=== PATIENT | female | born 1990 | race Caucasian/White ===

== ENCOUNTER → 2016-10-24 | Outpatient (CLI) | payer BC ==
--- NOTE | 2016-10-24 16:30 | Diagnostic Imaging Report ---
INDICATION: anatomical assessment. TECHNIQUE: Multiple real-time grayscale images were obtained over the gravid uterus. COMPARISON: None FINDINGS: Single viable intrauterine currently in transverse position. Placenta is posterior without evidence for previa. Normal amount of amniotic fluid appears to be present. anatomical assessment demonstrates very limited essentially no visualization of the portions of the intracranial structures, cardiac structures as well as kidneys. The remainder of the visualized anatomical structures are unremarkable. Biometrical measurements are as follows: Biparietal 4.8 cm, age 20 weeks 6 days. Head circumference 18.4 cm, age 20 weeks 6 days. Abdominal circumference 15.4 cm, age 20 weeks 5 days. Femur length 3.7 cm, age 21 weeks 5 days. Sonographic estimate age: 21 weeks 1 days. Sonographic estimated date of delivery: 03/05/2017. Estimated Weight: 397 gm (+/- 58 gm). LMP percentile: 49%. heart rate: 158 beats per minute. number: 1 of 1. IMPRESSION: Single viable intrauterine in a transverse position. Estimated age is 21 weeks 1 day. Estimated date of delivery 03/05/2017. The intracranial structures, heart and kidneys are not well assessed at this time. Dictated by: Dictated on workstation # [id number]
== END ==
LOC: RAD 13:38
PROVIDERS: ATTEND Obstetrics & Gynecology
DX: Z36 Encounter for antenatal screening of mother (principal); Z3A.21 21 weeks gestation of pregnancy
CPT/HCPCS: 76805

== ENCOUNTER 2017-03-03 11:35 | Inpatient (IN) | payer BC ==
[2017-03-03] VITALS (43 sets, daily range): BP systolic 118–158; BP diastolic 58–96
[~2017-03-03] VITALS: Ht 157.5 cm; Wt 112.7 kg
[2017-03-03] MEDS ORDERED: MISOPROSTOL 100 MCG (CYTOTEC) TAB PO ONE (12:30)
[2017-03-03] MEDS ORDERED: CATHETER FLUSH 10 ML SYR IV PRN (12:30)
[2017-03-03 12:35] LABS: BASOPHILS % (AUTO) 0 % (0-10); EOSINOPHILS # (AUTO) 0.1 10^3/uL (0.0-0.3); EOSINOPHILS % (AUTO) 1 % (0-10); LYMPHOCYTES # (AUTO) 1.9 X 10^3 (1.0-4.0); LYMPHOCYTES % (AUTO) 21 % (12-44); MEAN CORPUSCULAR HEMOGLOBIN 28 PG (25-34); MEAN CORPUSCULAR HGB CONC 34 G/DL (32-36); MEAN CORPUSCULAR VOLUME 83 FL (80-99); MEAN PLATELET VOLUME 10.1 FL (7.4-10.4); MONOCYTES # (AUTO) 0.7 X 10^3 (0.0-1.0); MONOCYTES % (AUTO) 8 % (0-12); NEUTROPHILS # (AUTO) 6.3 X 10^3 (1.8-7.8); NEUTROPHILS % (AUTO) 70 % (42-75); PLATELET COUNT 288 10^3/uL (130-400); RED BLOOD COUNT 4.46 10^6/uL (4.35-5.85); RED CELL DISTRIBUTION WIDTH 13.9 % (10.0-14.5); WHITE BLOOD COUNT 9.1 10^3/uL (4.3-11.0)
[2017-03-03] MEDS: NS IV 1000 ML 1,000 ML IV SCH ×2 (12:39→16:55)
[2017-03-03] MEDS ORDERED: LEVO50TA6 PO (13:03)
[2017-03-03] MEDS ORDERED: PREN1TAB86 PO (13:03)
[2017-03-03] MEDS: ONDANSETRON 4 MG/2 ML (SDV) Z0FRAN IVP PRN ×2 (14:32→20:08)
[2017-03-03] MEDS ORDERED: OXYTOCIN/NORMAL SALINE 500 ML IV ONE (16:22)
[2017-03-03] MEDS ORDERED: OXYTOCIN/NORMAL SALINE 500 ML IV SCH (16:34)
[2017-03-03] MEDS ORDERED: SUFENTA 0.6MCG/ML BUPIVA 0.125 100 ML ONE (20:06)
[2017-03-03] MEDS ORDERED: KETAMINE HCL 100 MG/ML 5 ML VIAL ONE (20:44)
[2017-03-03] MEDS ORDERED: fentaNYL INJECTION 100 MCG/2 ML AMP ONE ×3 (20:44)
[2017-03-03] MEDS: EPIDURAL (SUFENTA 0.6MCG/ML BUPIVA 0.125%) 100 ML BAG EPI PRN (20:53)
[2017-03-03] MEDS ORDERED: LACTATED RINGERS 1,000 ML IV ONE (21:03)
--- NOTE | 2017-03-03 21:05 | Anesthesia-General Post-Op ---
General Patient Condition Mental Status/LOC: Same as Preop Cardiovascular: Satisfactory Nausea/Vomiting: Absent Respiratory: Satisfactory Pain: Controlled Complications: Absent Post Op Complications Complications None Follow Up Care/Instructions Patient Instructions None needed. Anesthesia/Patient Condition Patient Condition Patient is doing well, no complaints, stable vital signs, no apparent adverse anesthesia problems. No complications reported per nursing. MILDRED AGUILAR CRNA Mar 03, 2017 21:05
[2017-03-03] MEDS ORDERED: diphenhydrAMINE 50 MG/ML INJ (BENADRYL) IV PRN (21:15)
[2017-03-03] MEDS ORDERED: ONDANSETRON 4 MG/2 ML (SDV) Z0FRAN IV PRN (21:15)
[2017-03-03] MEDS ORDERED: NALOXONE 0.4 MG/ML 1 ML (NARCAN) VIAL IV PRN ×2 (21:15)
[2017-03-04] VITALS (81 sets, daily range): BP systolic 102–150; BP diastolic 51–98
[2017-03-04] MEDS: NS IV 1000 ML 1,000 ML IV SCH ×2 (01:08→08:44)
[2017-03-04] MEDS: EPIDURAL (SUFENTA 0.6MCG/ML BUPIVA 0.125%) 100 ML BAG EPI PRN ×3 (04:09→19:40)
[2017-03-04] MEDS: ONDANSETRON 4 MG/2 ML (SDV) Z0FRAN IVP PRN (08:41)
[2017-03-04] MEDS: METOCLOPRAMIDE INJ 10 MG/2 ML (REGLAN) IV PRN ×2 (12:30→20:04)
--- NOTE | 2017-03-04 16:18 | History & Physical-OB ---
OB - Chief Complaint & HPI Date/Time Date of Admission: Date of Admission: Mar 03, 2017 at 12:23 pm Time Seen by Provider: 09:45 Chief Complaint/History OB-Reason for Admission/Chief: Rupture of Membranes Hx : 1 Hx Para: 0 Expected Date of Delivery: Mar 06, 2017 Gestational Age in Weeks: 39 Gestational Age in Days: 4 Other reason for admission: This is a 26 year old at 38 4/7 weeks who was admitted on 03/03/[address] Quiñones with complaint of ROM. She reports ROM at 10:00 on 03/03/2017. I resumed care of the patient on 03/04/2107. On admission she had gross rupture of membranes and was reportedly 2 cm dilated. She apparently declined pitocin initially so misoprostol 50 mcg orally was given x 1 and then augmentation with pitocin, though this was increased slowly and not past 18 mu/hr despite inadequate contraction pattern. She was still 4 cm dilated when I resumed care this morning. Admission Nurse Assessment Rev: Yes History of Labs O+/- Rub I VDRL NR HbSAg - Hep C - HIV - subclinical hypothyroid with TSH of 5 on intake. Has been on 50 mcg of syntoroid. GC Ch - GBS - abnormal 1 hour, passed 3 hour Allergies and Home Medications Allergies Coded Allergies: latex (Verified Allergy, Unknown, RASH, 03/03/17) Home Medications Levothyroxine Sodium 50 Mcg Tablet, 50 MCG PO DAILY, (Reported) Vit W-Ca,Fe,FA(<1 mg) 1 Each Tablet, 1 EACH PO DAILY, (Reported) OB - History Hx of Present Ultrasounds: Normal mid trimester US Obstetrical Complications: None Medical Complications: None, Other (Had workup for alopecia at [facility] and then [facility]. Apparently was told she might had Hep C, but did not have those results. We have not been able to reproduce this. Viral load was negative and she has had a negative antibody panel. ) Obstetrical History Hx : 1 Hx Para: 0 Delivery History Adverse Rxn to Tranfusion: No Patient Past Medical History See above Social History/Family History HIV/AIDS: No Recent Infectious Disease Expo: No Sexually Transmitted Disease: No Alcohol Use: Regular Use (none since + test ) Recreational Drug Use: No Immunizations Date of Influenza Vaccine: Feb 08, 2017 OB - Admission Exam Physical Exam Vitals: Vital Signs 03/04/17 03/04/17 14:30 15:30 Temp 98.2 Pulse 98 Resp 20 B/P (MAP) 130/70 Pulse Ox 98 O2 Delivery Room Air JENNY MONTANO DO Mar 04, 2017 16:18
[2017-03-04] MEDS ORDERED: CITRIC ACID/SOB CIT (BICITRA) 30 ML UDC ONE (17:02)
[2017-03-04] MEDS ORDERED: LACTATED RINGERS 1,000 ML IV ONE (17:02)
[2017-03-04] MEDS ORDERED: FAMOTIDINE 20MG/2ML IV (PEPCID) ONE (17:02)
[2017-03-04] MEDS ORDERED: ceFAZolin 1,000 MG (ANCEF) VIAL ONE (19:57)
[2017-03-04] MEDS ORDERED: NS (IVPB) 0 ML ONE (19:57)
[2017-03-04] MEDS ORDERED: ceFAZolin 2 GM/50 ML NS 50 ML ONE (19:59)
[2017-03-04] MEDS ORDERED: AZITHROMYCIN 500 MG (ZITHROMAX) VIAL ONE (20:02)
[2017-03-04] MEDS ORDERED: OXYTOCIN/NORMAL SALINE 1,000 ML IV ONE (20:13)
[2017-03-04] MEDS ORDERED: LIDOCAINE PF 2% 5 ML (XYLOCAINE) VIAL ONE (20:13)
[2017-03-04] MEDS ORDERED: CITRIC ACID/SOB CIT (BICITRA) 30 ML UDC PO ONE ×2 (20:15→22:15)
[2017-03-04] MEDS ORDERED: METOCLOPRAMIDE INJ 10 MG/2 ML (REGLAN) IV ONE ×2 (20:15→22:15)
[2017-03-04] MEDS ORDERED: AZITHROMYCIN INJECTION 500 MG in NS (IVPB) 250 ML IV NR (20:15)
[2017-03-04] MEDS ORDERED: FAMOTIDINE 20MG/2ML IV (PEPCID) IV ONE ×2 (20:15→22:15)
[2017-03-04] MEDS ORDERED: ceFAZolin 2 GM/50 ML NS 50 ML IV NR (20:15)
[2017-03-04] MEDS ORDERED: AZITHROMYCIN INJECTION 500 MG in NS (IVPB) 250 ML IV ONE (20:15)
[2017-03-04] MEDS ORDERED: ceFAZolin 2 GM/50 ML NS 50 ML IV ONE (20:15)
[2017-03-04] MEDS ORDERED: NS (IVPB) 250 ML ONE (20:17)
--- NOTE | 2017-03-04 20:19 | Progress Note-Standard ---
Standard Progress Note Progress Notes/Assess & Plan Date Seen by Provider: Mar 04, 2017 Time Seen by Provider: 09:45 Progress/Assessment & Plan Resumed care from Dr. Quiñoens. See History and physical Admitted yesterday due to ROM. Had misoprostol x 1 and then augmentation with oxytocin. Had reached 4 cm dilation only this am wit marcano modified oxytocin dosing. She had epidural placement. RN reports difficulty tracing the baby but Dr. Quiñones would not authorize the placement of FSE due to questions about Hep C status (patient is negative but had told us that she was positive when she was tested at some point, but further testing has been negative). This am FSE will be placed and oxytocin augmentation was increased. She has now had ROM since 10:00 am on 03/03/17. No fever, no tachycardia, no evidence of infection. FWB is reassuring. Had a window on her side from the epidural but this is better with the bolus. JENNY MONTANO DO Mar 04, 2017 20:19
--- NOTE | 2017-03-04 20:25 | Progress Note-Standard ---
Standard Progress Note Progress Notes/Assess & Plan Date Seen by Provider: Mar 04, 2017 Time Seen by Provider: 12:30 Progress/Assessment & Plan contraction pattern difficulty to trac. IUPC placed without difficulty. 7 cm/ 90-100. JENNY MONTANO DO Mar 04, 2017 20:25
--- NOTE | 2017-03-04 20:29 | Progress Note-Standard ---
Standard Progress Note Progress Notes/Assess & Plan Date Seen by Provider: Mar 04, 2017 Time Seen by Provider: 19:55 Progress/Assessment & Plan SVE at 1745 9 +. Despite adequate contractions (> 200 MVU with IUPC), SVE at 1940, 8-9/ 80-90% dilated, suggestion of cervical swelling. well being reassuring but baseline slowly increasing. Plan to proceed with primary section under epidural anesthesia due to failure to progress. Prolonged ROM. Risks of bleeding, infection, injury to bowel, bladder and ureter. Ancef 2 grams and Zithromax 500 mg given IV for prophylaxis and due to ROM. Consent signed. JENNY MONTANO DO Mar 04, 2017 20:29
[2017-03-04] MEDS ORDERED: ONDANSETRON 4 MG/2 ML (SDV) Z0FRAN ONE (21:07)
[2017-03-04] MEDS ORDERED: DEXAMETHASONE 10 MG/ML (DECADRON) 1 ML VIAL ONE (21:07)
[2017-03-04] MEDS ORDERED: D5 LR IV SOLUTION 1,000 ML IV SCH (21:48)
[2017-03-04] MEDS ORDERED: OXYTOCIN/NORMAL SALINE 500 ML IV SCH (21:48)
--- NOTE | 2017-03-04 21:54 | Cesarean Section Operative ---
Procedure Procedure Note Pre-operative Diagnosis: Coby yip (28 /Para 1 / 0, Gestational Age (wks)39 with faliure to progress, prolonged rupture of membranes Post-operative Diagnosis: same [] Procedure: [primary low transverse section Physician: MERLY MONTANO Financial Project Manager: JAMES Cervantes; Merly Ross, MS III Estimated blood loss: 600 mL Disposition: stable Findings: Viablefemale infant, Apgars 8/8, weight 6#10oz, intact placenta, 3vc, normal appearing uterus, tubes, and ovaries. Indications:Coby yip (26 /Para 1 / 0,Gestational Age (wks)39 presenting for []. Procedure Details: The patient was seen in pre-op and the procedure was discussed with the patient in full, including the risks, benefits, and alternatives. All questions were answered. The patient was taken to the operating room and a time out was performed, verifying patient and procedure. After spinal anesthesia was placed by our anesthesia colleagues, the patient was placed in the dorsal supine with leftward tilt for uterine displacement.~ Her abdomen was then prepped and draped in the typical sterile fashion. A Pfannenstiel skin incision was made using a scalpel and carried down through the underlying fascia. The fascia was incised in the midline and tented up using Gracie clamps. On both the inferior and superior fascia side the rectus muscle was dissected off bluntly and sharply using Louis scissors. The peritoneum was identified and entered bluntly in the midline. This was then stretched laterally using manual strength. After entering the abdominal cavity and confirming lack of intraperitoneal adhesions, a large Moose retractor was placed and the lower uterine segment was visualized. A bladder flap was created with the use of Metzenbaum scissors.~ A scalpel was utilized to make a low transverse uterine incision. Amniotomy was performed with an Allis clamp with return of clear fluid. The 's head was grasped and brought to the level of the incision. Fundal pressure was applied and infant was delivered without difficulty. Mouth and nares were suctioned with bulb suction. After the umbilical cord was clamped and cut, the infant was handed off to the pediatric staff. A sample of cord blood was then obtained. The placenta was delivered intact via uterine massage. The uterus was exteriorized and cleared of all clots and debris. The uterine incision was closed using 0 Vicryl in a running locked fashion. A second imbricated layer was placed using 0 Vicryl in a running fashion as well. The uterus was flexed forward and the posterior rectouterine space was inspected and cleared of all clots and debris. Again the hysterotomy site was examined and hemostasis was observed. The bilateral tubes and ovaries appeared normal. The uterus was placed back into the abdominal cavity and abdominal gutters were cleared of all clots and debris. A final check of the uterine incision showed it to be hemostatic. The peritoneum was closed using 3-0 Vicryl in a running fashion. The fascia was closed with 0 Vicryl in a running fashion. The subcutaneous space was hemostatic, and irrigated. The subcutaneous space was closed with 3-0 Vicryl in several single interrupted stitches. The skin was then closed using 4- 0 Monocryl in a running subcuticular fashion. The skin edges were reapproximated together and were hemostatic. A pressure dressing was applied. All sponge, lap and needle counts were correct at the end of the procedure per nursing. Vitals - Labs Vital Signs - I&O Vital Signs Date Time Temp Pulse Resp B/P (MAP) Pulse Ox O2 Delivery O2 Flow Rate FiO2 03/04/17 19:00 114 20 143/84 99 Room Air 03/04/17 18:45 97.8 108 20 144/77 100 Room Air 03/04/17 18:30 102 20 129/64 100 Room Air 03/04/17 18:15 103 20 138/73 99 Room Air 03/04/17 18:00 98.1 101 20 141/75 100 Room Air 03/04/17 17:45 110 20 138/78 99 Room Air 03/04/17 17:30 102 20 135/75 99 Room Air 03/04/17 17:15 97.9 101 20 150/62 99 Room Air 03/04/17 17:00 100 20 102/62 99 Room Air 03/04/17 16:45 101 20 135/75 98 Room Air 03/04/17 16:30 105 20 123/57 98 Room Air 03/04/17 16:15 100 20 131/64 99 Room Air 03/04/17 16:00 97.7 104 20 98 Room Air 03/04/17 15:45 93 20 127/64 97 Room Air 03/04/17 15:30 98 20 130/70 98 Room Air 03/04/17 15:15 104 20 130/64 99 Room Air 03/04/17 15:00 106 20 128/61 98 Room Air 03/04/17 14:45 104 20 119/66 98 Room Air 03/04/17 14:30 98.2 109 20 108/51 98 Room Air 03/04/17 14:15 98.1 117 20 134/80 98 Room Air 03/04/17 14:00 97.6 125 20 131/80 98 Room Air 03/04/17 13:45 126 20 116/65 98 Room Air 03/04/17 13:30 126 20 116/65 98 Room Air 03/04/17 13:15 99 20 122/61 97 Room Air 03/04/17 13:00 96 20 116/58 96 Room Air 03/04/17 12:45 101 20 116/62 96 Room Air 03/04/17 12:30 98.8 120 20 134/79 98 Room Air 03/04/17 12:15 110 20 127/66 97 Room Air 03/04/17 12:00 102 20 128/68 96 Room Air 03/04/17 11:45 104 20 130/67 98 Room Air 03/04/17 11:30 96 20 130/62 97 Room Air 03/04/17 11:15 97.1 122 20 136/73 98 Room Air 03/04/17 11:00 110 20 138/78 96 Room Air 03/04/17 10:45 97.2 107 20 149/87 99 Room Air 03/04/17 10:30 123 20 135/78 99 Room Air 03/04/17 10:15 121 20 135/85 99 Room Air 03/04/17 10:00 112 20 137/88 99 Room Air 03/04/17 09:45 97.6 115 20 134/84 98 Room Air 03/04/17 09:30 110 20 141/85 100 Room Air 03/04/17 09:15 118 20 141/89 100 Room Air 03/04/17 09:00 118 20 140/80 99 Room Air 03/04/17 08:45 98.7 118 20 144/98 99 Room Air 03/04/17 08:30 108 20 127/73 98 Room Air 03/04/17 08:15 105 20 122/72 97 Room Air 03/04/17 08:00 108 20 119/71 97 Room Air 03/04/17 07:45 108 20 123/73 98 Room Air 03/04/17 07:30 97.8 112 20 126/73 97 Room Air 03/04/17 07:15 108 20 133/79 97 Room Air 03/04/17 07:00 18 20 132/79 98 Room Air 03/04/17 06:45 115 20 125/74 98 Room Air 03/04/17 06:30 107 20 132/83 98 Room Air 03/04/17 06:15 104 20 134/83 98 Room Air 03/04/17 06:00 103 20 135/67 98 Room Air 03/04/17 05:45 97.6 118 20 97 Room Air 03/04/17 05:30 118 20 122/78 97 Room Air 03/04/17 05:15 109 20 127/73 97 Room Air 03/04/17 05:00 107 20 124/72 97 Room Air 03/04/17 04:45 97 20 139/81 97 Room Air 03/04/17 04:30 112 20 125/77 97 Room Air 03/04/17 04:15 117 20 122/76 97 Room Air 03/04/17 04:00 107 20 124/71 97 Room Air 03/04/17 03:45 107 20 136/78 97 Room Air 03/04/17 03:30 107 20 136/78 97 Room Air 03/04/17 03:15 99.0 102 20 139/80 97 Room Air 03/04/17 03:00 103 20 136/82 97 Room Air 03/04/17 02:45 109 20 137/75 98 Room Air 03/04/17 02:30 97 20 127/67 97 Room Air 03/04/17 02:15 96 20 120/66 97 Room Air 03/04/17 02:00 96 20 127/62 98 Room Air 03/04/17 01:45 101 20 130/71 98 Room Air 03/04/17 01:30 100 20 126/75 98 Room Air 03/04/17 01:15 110 20 133/83 98 Room Air 03/04/17 01:00 104 20 125/75 98 Room Air 03/04/17 00:45 112 20 126/77 98 Room Air 03/04/17 00:30 107 20 125/84 98 Room Air 03/04/17 00:15 108 20 121/96 98 Room Air 03/04/17 00:00 100 20 138/79 98 Room Air 03/03/17 23:45 103 20 138/82 100 Room Air 03/03/17 23:30 104 20 135/84 100 Room Air 03/03/17 23:15 98.5 108 20 135/83 100 Room Air 03/03/17 23:00 113 20 154/90 100 Room Air 03/03/17 22:45 109 20 143/90 100 Room Air 03/03/17 22:30 105 20 134/80 99 Room Air 03/03/17 22:15 121 20 131/82 99 Room Air 03/03/17 22:00 129 20 133/75 100 Room Air I & O 03/05/17 07:00 Output Total 4600 ml Balance -4600 ml MERLY MONTANO DO Mar 04, 2017 21:54
[2017-03-04] MEDS ORDERED: CATHETER FLUSH 10 ML SYR IV SCH (22:00)
[2017-03-04] MEDS ORDERED: MEASLES,MUMPS,RUBELLA 1 EA INJ SC SCH (22:00)
[2017-03-04] MEDS ORDERED: HYDROmorphone (DILAUDID) 2 MG/ML VIAL IVP PRN (22:00)
[2017-03-04] MEDS ORDERED: TETANUS,DIPTH,PERTUSS P/F (BOOSTRIX) 0.5 ML VIAL IM SCH (22:00)
[2017-03-04] MEDS ORDERED: LACTATED RINGERS 1,000 ML IV SCH ×3 (22:13)
[2017-03-04] MEDS ORDERED: METOCLOPRAMIDE INJ 10 MG/2 ML (REGLAN) IV PRN (22:15)
[2017-03-04] MEDS ORDERED: diphenhydrAMINE 50 MG/ML INJ (BENADRYL) IV PRN (22:15)
[2017-03-04] MEDS ORDERED: ONDANSETRON 4 MG/2 ML (SDV) Z0FRAN IV PRN (22:15)
[2017-03-04] MEDS ORDERED: NALOXONE 0.4 MG/ML 1 ML (NARCAN) VIAL IV PRN ×2 (22:15)
[2017-03-04] MEDS ORDERED: EPIDURAL (SUFENTA 0.6MCG/ML BUPIVA 0.125%) 100 ML BAG EPI PRN (22:15)
[2017-03-05] VITALS (7 sets, daily range): BP systolic 104–126; BP diastolic 64–76
[2017-03-05] MEDS: KETOROLAC 30 MG/ML VIAL IVP SCH ×2 (00:01→05:33)
[2017-03-05] MEDS: HYDROcodone/APAP 5 MG/325 MG (LORTAB) TAB PO PRN ×2 (02:38→08:06)
[2017-03-05 04:41] LABS: BASOPHILS % (AUTO) 0 % (0-10); EOSINOPHILS % (AUTO) 0 % (0-10); LYMPHOCYTES # (AUTO) 1.2 X 10^3 (1.0-4.0); LYMPHOCYTES % (AUTO) 5 % (12-44); MEAN CORPUSCULAR HEMOGLOBIN 29 PG (25-34); MEAN CORPUSCULAR HGB CONC 35 G/DL (32-36); MEAN CORPUSCULAR VOLUME 83 FL (80-99); MEAN PLATELET VOLUME 9.9 FL (7.4-10.4); MONOCYTES # (AUTO) 1.2 X 10^3 (0.0-1.0); MONOCYTES % (AUTO) 5 % (0-12); NEUTROPHILS # (AUTO) 23.5 X 10^3 (1.8-7.8); NEUTROPHILS % (AUTO) 91 % (42-75); PLATELET COUNT 250 10^3/uL (130-400); RED BLOOD COUNT 3.94 10^6/uL (4.35-5.85); RED CELL DISTRIBUTION WIDTH 13.6 % (10.0-14.5); WHITE BLOOD COUNT 25.8 10^3/uL (4.3-11.0)
[2017-03-05] MEDS: NS IV 1000 ML 1,000 ML IV SCH (05:33)
[2017-03-05] MEDS: FERROUS SULF 325 MG (IRON) TAB PO SCH (09:46)
[2017-03-05] MEDS: DOCUSATE SODIUM 100 MG (COLACE) CAP PO SCH (09:46)
--- NOTE | 2017-03-05 10:07 | Postpartum Progress Note ---
Post Op Post-operative Day #[] Subjective: Patient is without complaints. Ambulating, voiding after oliver removed. Tolerating a regular diet without nausea or vomiting. Normal lochia. Pain is well controlled with oral pain medications. Passing flatus. [] feeding. [] Objective: Laboratory Tests Test 03/05/17 04:30 Range/Units White Blood Count 25.8 H 4.3-11.0 10^3/uL Red Blood Count 3.94 L 4.35-5.85 10^6/uL Hemoglobin 11.3 L 11.5-16.0 G/DL Hematocrit 33 L 35-52 % Mean Corpuscular Volume 83 80-99 FL Mean Corpuscular Hemoglobin 29 25-34 PG Mean Corpuscular Hemoglobin Concent 35 32-36 G/DL Red Cell Distribution Width 13.6 10.0-14.5 % Platelet Count 250 130-400 10^3/uL Mean Platelet Volume 9.9 7.4-10.4 FL Neutrophils (%) (Auto) 91 H 42-75 % Lymphocytes (%) (Auto) 5 L 12-44 % Monocytes (%) (Auto) 5 0-12 % Eosinophils (%) (Auto) 0 0-10 % Basophils (%) (Auto) 0 0-10 % Neutrophils # (Auto) 23.5 H 1.8-7.8 X 10^3 Lymphocytes # (Auto) 1.2 1.0-4.0 X 10^3 Monocytes # (Auto) 1.2 H 0.0-1.0 X 10^3 Eosinophils # (Auto) 0.0 0.0-0.3 10^3/uL Basophils # (Auto) 0.0 0.0-0.1 10^3/uL Vital Sign - Last 12Hours 03/05/17 03/05/17 03/05/17 03/05/17 00:08 02:30 05:30 09:43 Temp 97.0 96.9 96.9 97.3 Pulse 104 97 98 105 Resp 18 18 18 20 B/P (MAP) 117/76 126/70 109/66 109/68 Pulse Ox 97 98 98 97 O2 Delivery Room Air Room Air Room Air Room Air Physical Exam: General - Alert and oriented, no apparent distress Abdomen - Soft, appropriately tender to palpation, non-distended, fundus firm at umbilicus Incision - clean, dry and intact; no erythema or induration, no drainage Extremities - no edema, negative Shannan's bilaterally [] Assessment: [] post-operative day # [], status post []. Recovering well, hemodynamically stable Acute blood loss anemia [] Plan: Routine post-operative care. Encourage breast feeding. Encourage ambulation. VTE prophylaxis: SCDs. Ferrous sulfate supplementation. Plan for discharge [] Vitals - Labs Vital Signs - I&O Vital Signs Date Time Temp Pulse Resp B/P (MAP) Pulse Ox O2 Delivery O2 Flow Rate FiO2 03/05/17 09:43 97.3 105 20 109/68 97 Room Air 03/05/17 05:30 96.9 98 18 109/66 98 Room Air 03/05/17 02:30 96.9 97 18 126/70 98 Room Air 03/05/17 00:08 97.0 104 18 117/76 97 Room Air 03/04/17 20:30 118 20 146/92 99 Room Air 03/04/17 20:15 129 20 142/91 99 Room Air 03/04/17 20:00 131 20 141/89 99 Room Air 03/04/17 19:45 120 20 136/84 99 Room Air 03/04/17 19:30 118 20 150/84 100 Room Air 03/04/17 19:15 97.9 120 20 143/83 99 Room Air 03/04/17 19:00 114 20 143/84 99 Room Air 03/04/17 18:45 97.8 108 20 144/77 100 Room Air 03/04/17 18:30 102 20 129/64 100 Room Air 03/04/17 18:15 103 20 138/73 99 Room Air 03/04/17 18:00 98.1 101 20 141/75 100 Room Air 03/04/17 17:45 110 20 138/78 99 Room Air 03/04/17 17:30 102 20 135/75 99 Room Air 03/04/17 17:15 97.9 101 20 150/62 99 Room Air 03/04/17 17:00 100 20 102/62 99 Room Air 03/04/17 16:45 101 20 135/75 98 Room Air 03/04/17 16:30 105 20 123/57 98 Room Air 03/04/17 16:15 100 20 131/64 99 Room Air 03/04/17 16:00 97.7 104 20 98 Room Air 03/04/17 15:45 93 20 127/64 97 Room Air 03/04/17 15:30 98 20 130/70 98 Room Air 03/04/17 15:15 104 20 130/64 99 Room Air 03/04/17 15:00 106 20 128/61 98 Room Air 03/04/17 14:45 104 20 119/66 98 Room Air 03/04/17 14:30 98.2 109 20 108/51 98 Room Air 03/04/17 14:15 98.1 117 20 134/80 98 Room Air 03/04/17 14:00 97.6 125 20 131/80 98 Room Air 03/04/17 13:45 126 20 116/65 98 Room Air 03/04/17 13:30 126 20 116/65 98 Room Air 03/04/17 13:15 99 20 122/61 97 Room Air 03/04/17 13:00 96 20 116/58 96 Room Air 03/04/17 12:45 101 20 116/62 96 Room Air 03/04/17 12:30 98.8 120 20 134/79 98 Room Air 03/04/17 12:15 110 20 127/66 97 Room Air 03/04/17 12:00 102 20 128/68 96 Room Air 03/04/17 11:45 104 20 130/67 98 Room Air 03/04/17 11:30 96 20 130/62 97 Room Air 03/04/17 11:15 97.1 122 20 136/73 98 Room Air 03/04/17 11:00 110 20 138/78 96 Room Air 03/04/17 10:45 97.2 107 20 149/87 99 Room Air 03/04/17 10:30 123 20 135/78 99 Room Air 03/04/17 10:15 121 20 135/85 99 Room Air Labs Laboratory Tests 03/05/17 04:30: White Blood Count 25.8H, Red Blood Count 3.94L, Hemoglobin 11.3L, Hematocrit 33L , Mean Corpuscular Volume 83, Mean Corpuscular Hemoglobin 29, Mean Corpuscular Hemoglobin Concent 35, Red Cell Distribution Width 13.6, Platelet Count 250, Mean Platelet Volume 9.9, Neutrophils (%) (Auto) 91H, Lymphocytes (%) (Auto) 5L , Monocytes (%) (Auto) 5, Eosinophils (%) (Auto) 0, Basophils (%) (Auto) 0, Neutrophils # (Auto) 23.5H, Lymphocytes # (Auto) 1.2, Monocytes # (Auto) 1.2H, Eosinophils # (Auto) 0.0, Basophils # (Auto) 0.0 JENNY MONTANO DO Mar 05, 2017 10:07
[2017-03-05] MEDS: IBUPROFEN 600 MG (MOTRIN) TAB PO SCH ×2 (12:05→18:24)
[2017-03-05] MEDS: SIMETHICONE 80 MG (MYLICON) CHEW PO SCH (14:43)
--- NOTE | 2017-03-05 15:49 | Anesthesia-Regional Post-Op ---
Regional Patient Condition Mental Status: Alert, Oriented x3 Circulation: Same as Pre-Op Headache: Absent Sensation: Decreased (left upper leg) Motor Block: Absent Post Op Complications Complications Patient states that her left upper thigh is slightly numb. Follow Up Care/Instructions Patient Instructions Follow up tomorrow. Anesthesia/Patient Condition Patient is doing well, no complaints, stable vital signs, no apparent adverse anesthesia problems. No complications reported per nursing. ZULMA BARRAZA CRNA Mar 05, 2017 15:49
[2017-03-06] MEDS: IBUPROFEN 600 MG (MOTRIN) TAB PO SCH ×4 (00:02→17:26)
[2017-03-06] MEDS: SIMETHICONE 80 MG (MYLICON) CHEW PO SCH ×4 (00:05→17:26)
[2017-03-06] MEDS: DOCUSATE SODIUM 100 MG (COLACE) CAP PO SCH ×3 (00:05→20:33)
[2017-03-06 02:23] VITALS: BP 122/74
[2017-03-06] MEDS: KETOROLAC 30 MG/ML VIAL IVP SCH (07:19)
[2017-03-06 08:24] VITALS: BP 135/82
[2017-03-06] MEDS: FERROUS SULF 325 MG (IRON) TAB PO SCH (09:02)
[2017-03-06 12:56] VITALS: BP 114/70
--- NOTE | 2017-03-06 14:11 | Anesthesia-Regional Post-Op ---
Regional Patient Condition Mental Status: Alert, Oriented x3 Circulation: Same as Pre-Op Headache: Absent Sensation: Decreased Motor Block: Absent Post Op Complications Complications Continues to report left upper thigh numbness. No motor deficit. Follow Up Care/Instructions Patient Instructions None needed. Anesthesia/Patient Condition Patient is doing well, no complaints, stable vital signs, no apparent adverse anesthesia problems. No complications reported per nursing. MANISH REYES CRNA Mar 06, 2017 14:11
[2017-03-06 16:13] VITALS: BP 141/91
[2017-03-06 20:00] VITALS: BP 150/90
[2017-03-07] MEDS: IBUPROFEN 600 MG (MOTRIN) TAB PO SCH ×3 (00:31→12:59)
[2017-03-07 02:00] VITALS: BP 143/90
[2017-03-07 07:53] VITALS: BP 134/82
[2017-03-07] MEDS: FERROUS SULF 325 MG (IRON) TAB PO SCH (08:30)
[2017-03-07] MEDS: DOCUSATE SODIUM 100 MG (COLACE) CAP PO SCH (08:30)
--- NOTE | 2017-03-07 09:07 | Postpartum Progress Note ---
Post Op Post-operative Day #3 s/p PLTCS, kept yesterday due to increaed BP. Subjective: Patient is without complaints. Ambulating, voiding after oliver removed. Tolerating a regular diet without nausea or vomiting. Normal lochia. Pain is well controlled with oral pain medications. Passing flatus. [] feeding. [] Objective: VS - Last 72 Hours, by Label 03/04/17 03/04/17 03/04/17 03/04/17 09:15 09:30 09:45 10:00 Temp 97.6 Pulse 118 110 115 112 Resp 20 20 20 20 B/P (MAP) 141/89 141/85 134/84 137/88 Pulse Ox 100 100 98 99 O2 Delivery Room Air Room Air Room Air Room Air 03/04/17 03/04/17 03/04/17 03/04/17 10:15 10:30 10:45 11:00 Temp 97.2 Pulse 121 123 107 110 Resp 20 20 20 20 B/P (MAP) 135/85 135/78 149/87 138/78 Pulse Ox 99 99 99 96 O2 Delivery Room Air Room Air Room Air Room Air 03/04/17 03/04/17 03/04/17 03/04/17 11:15 11:30 11:45 12:00 Temp 97.1 Pulse 122 96 104 102 Resp 20 20 20 20 B/P (MAP) 136/73 130/62 130/67 128/68 Pulse Ox 98 97 98 96 O2 Delivery Room Air Room Air Room Air Room Air 03/04/17 03/04/17 03/04/17 03/04/17 12:15 12:30 12:45 13:00 Temp 98.8 Pulse 110 120 101 96 Resp 20 20 20 20 B/P (MAP) 127/66 134/79 116/62 116/58 Pulse Ox 97 98 96 96 O2 Delivery Room Air Room Air Room Air Room Air 03/04/17 03/04/17 03/04/17 03/04/17 13:15 13:30 13:45 14:00 Temp 97.6 Pulse 99 126 126 125 Resp 20 20 20 20 B/P (MAP) 122/61 116/65 116/65 131/80 Pulse Ox 97 98 98 98 O2 Delivery Room Air Room Air Room Air Room Air 03/04/17 03/04/17 03/04/1717 14:15 14:30 14:45 15:00 Temp 98.1 98.2 Pulse 117 109 104 106 Resp 20 20 20 20 B/P (MAP) 134/80 108/51 119/66 128/61 Pulse Ox 98 98 98 98 O2 Delivery Room Air Room Air Room Air Room Air 03/04/17 03/04/17 03/04/17 03/04/17 15:15 15:30 15:45 16:00 Temp 97.7 Pulse 104 98 93 104 Resp 20 20 20 20 B/P (MAP) 130/64 130/70 127/64 Pulse Ox 99 98 97 98 O2 Delivery Room Air Room Air Room Air Room Air 03/04/17 03/04/17 03/04/17 03/04/17 16:15 16:30 16:45 17:00 Pulse 100 105 101 100 Resp 20 20 20 20 B/P (MAP) 131/64 123/57 135/75 102/62 Pulse Ox 99 98 98 99 O2 Delivery Room Air Room Air Room Air Room Air 03/04/17 03/04/17 03/04/17 03/04/17 17:15 17:30 17:45 18:00 Temp 97.9 98.1 Pulse 101 102 110 101 Resp 20 20 20 20 B/P (MAP) 150/62 135/75 138/78 141/75 Pulse Ox 99 99 99 100 O2 Delivery Room Air Room Air Room Air Room Air 03/04/17 03/04/17 03/04/17 03/04/17 18:15 18:30 18:45 19:00 Temp 97.8 Pulse 103 102 108 114 Resp 20 20 20 20 B/P (MAP) 138/73 129/64 144/77 143/84 Pulse Ox 99 100 100 99 O2 Delivery Room Air Room Air Room Air Room Air 03/04/17 03/04/17 03/04/17 03/04/17 19:15 19:30 19:45 20:00 Temp 97.9 Pulse 120 118 120 131 Resp 20 20 20 20 B/P (MAP) 143/83 150/84 136/84 141/89 Pulse Ox 99 100 99 99 O2 Delivery Room Air Room Air Room Air Room Air 03/04/17 03/04/17 03/05/17 03/05/17 20:15 20:30 00:08 02:30 Temp 97.0 96.9 Pulse 129 118 104 97 Resp 20 20 18 18 B/P (MAP) 142/91 146/92 117/76 126/70 Pulse Ox 99 99 97 98 O2 Delivery Room Air Room Air Room Air Room Air 03/05/17 03/05/17 03/05/17 03/05/17 05:30 09:43 13:45 18:25 Temp 96.9 97.3 98.5 97.7 Pulse 98 105 105 99 Resp 18 20 20 18 B/P (MAP) 109/66 109/68 104/64 122/73 Pulse Ox 98 97 97 99 O2 Delivery Room Air Room Air Room Air Room Air 03/05/17 03/06/17 03/06/17 03/06/17 20:00 02:23 08:24 09:00 Temp 97.4 98.4 97.4 Pulse 69 79 111 Resp 18 16 16 B/P (MAP) 117/69 122/74 135/82 Pulse Ox 99 98 99 99 O2 Delivery Room Air Room Air Room Air Room Air 03/06/17 03/06/17 03/06/17 03/07/17 12:56 16:13 20:00 02:00 Temp 97.6 97.4 96.1 97.2 Pulse 100 100 101 105 Resp 16 18 17 B/P (MAP) 114/70 141/91 150/90 143/90 Pulse Ox 98 98 98 97 O2 Delivery Room Air Room Air Room Air 03/07/17 07:53 Temp 97.0 Pulse 95 Resp 18 B/P (MAP) 134/82 Pulse Ox 99 O2 Delivery Room Air Physical Exam: General - Alert and oriented, no apparent distress Abdomen - Soft, appropriately tender to palpation, non-distended, fundus firm at umbilicus Incision - clean, dry and intact; no erythema or induration, no drainage Extremities - no edema, negative Shannan's bilaterally [] Assessment: [] post-operative day # [], status post []. Recovering well, hemodynamically stable Acute blood loss anemia [] Plan: Routine post-operative care. Encourage breast feeding. Encourage ambulation. VTE prophylaxis: SCDs. Ferrous sulfate supplementation. Plan for discharge [] Vitals - Labs Vital Signs - I&O Vital Signs Date Time Temp Pulse Resp B/P (MAP) Pulse Ox O2 Delivery O2 Flow Rate FiO2 03/07/17 07:53 97.0 95 18 134/82 99 Room Air 03/07/17 02:00 97.2 105 17 143/90 97 Room Air 03/06/17 20:00 96.1 101 18 150/90 98 Room Air 03/06/17 16:13 97.4 100 16 141/91 98 03/06/17 12:56 97.6 100 16 114/70 98 Room Air JENNY MONTANO DO Mar 07, 2017 9:07 am
[2017-03-07] MEDS ORDERED: FERR-74 PO (09:08)
[2017-03-07] MEDS ORDERED: HYDR-3812 PO (09:08)
[2017-03-07] MEDS ORDERED: IBUP-1773 PO (09:08)
--- NOTE | 2017-03-07 09:10 | Discharge Inst-Women's Service ---
Discharge Inst-Women's Serv Depart Medication/Instructions New, Converted or Re-Newed RX: RX on Chart Final Diagnosis deep arrest of labor primary caesarean section mild acute blood loss anemia hypothyroid Consults/Follow Up Additional Follow Up: Yes (1 week for incision check and 6 weeks for pp exam) Activity Activity: Activity as Tolerated (no lifting over 25 lbs) Driving Instructions: No Driving for 1 Week NO SMOKING: NO SMOKING Nothing Inside Vagina: No Douching, No [place], No Tampons Diet Discharge Diet: No Restrictions Symptoms to Report to : Swelling Increased, Bleeding Excessive, Pain Increased, Fever Over 101 Degrees F, Vaginal Bleeding Increase, Cramps in Feet or Legs, Vaginal Discharge Foul Skin/Wound Care Infection Signs and Symptoms: Increased Redness, Foul Odor of Wound, Increased Drainage, Skin Itchy or Has a Rash, Increased Swelling, Temperature Above 101 F Operative Area Clean and Dry: Keep Incision Clean/Dry Stitches/[place]/Dermabond: Dermabond Bathing Instructions: JENNY Whiting DO Mar 07, 2017 9:10 am
== END 2017-03-07 13:40 | disposition home or self-care (01) | DRG 765 ==
LOC: WSo 11:35 → LDRP 11:35 → WSo 12:23 → LDRP 03-04 22:02
PROVIDERS: ADMIT Obstetrics & Gynecology; ATTEND Obstetrics & Gynecology
PROC: 10D00Z1 Extraction of Products of Conception, Low, Open Approach (ICD-10-PCS; principal; 2017-03-04 20:36)
DX: O42.12 Full-term premature rupture of membranes, onset of labor more than 24 hours following rupture (principal); O99.284 Endocrine, nutritional and metabolic diseases complicating childbirth; E03.9 Hypothyroidism, unspecified; O90.81 Anemia of the puerperium; D62 Acute posthemorrhagic anemia; Z3A.39 39 weeks gestation of pregnancy; Z37.0 Single live birth
CPT/HCPCS: 36415; 85025; 86850; 86900; 86901; 94664; 99212

== ENCOUNTER → 2019-11-17 | Outpatient (CLI) | payer BC ==
[~2019-11-17] MED LIST: ACHD5005 PO; FERR325T18 PO; IBUP-1773 PO; LEVO50TA6 PO; PREN1TAB86 PO
--- NOTE | 2019-11-17 11:18 | Diagnostic Imaging Report ---
INDICATION: Foot pain COMPARISON: None available TECHNIQUE: 3 radiographs of the right foot dated 11/17/2019. FINDINGS: No acute fracture or dislocation. No destructive osseous process. Tiny plantar calcaneal enthesophyte. No suspicious radiopaque foreign body. IMPRESSION: No acute osseous abnormality with tiny plantar calcaneal enthesophyte. Dictated by: Dictated on workstation # [id number]
== END ==
LOC: RAD FS 10:55
PROVIDERS: ATTEND Nurse Practitioner Family
DX: M79.671 Pain in right foot (principal)
CPT/HCPCS: 73630

== ENCOUNTER 2020-12-01 07:07 | Outpatient (CLI) | payer BC ==
[~2020-12-01] VITALS: Ht 157.5 cm; Wt 106.2 kg
[2020-12-01] MEDS ORDERED: SERT-413 PO (12:55)
[2020-12-01] MEDS ORDERED: DICY20TA10 PO (12:55)
[2020-12-01] MEDS ORDERED: NORG1TAB15 PO (12:55)
== END 2020-12-01 13:02 | disposition home or self-care (01) ==
LOC: PREOP 07:07
PROVIDERS: ATTEND Surgery
DX: Z01.818 Encounter for other preprocedural examination (principal)

== ENCOUNTER 2020-12-08 09:21 | Day surgery (SDC) | payer BC ==
[~2020-12-08] VITALS: Ht 152.4 cm; Wt 106.2 kg
[2020-12-08] VITALS (11 sets, daily range): BP systolic 100–146; BP diastolic 52–86
[~2020-12-08 09:21] MED LIST changes: +DICY20TA10 PO; +NORG1TAB15 PO; +SERT-413 PO
[2020-12-08] MEDS ORDERED: ACETAMINOPHEN 325 MG TABLET PO PRN (09:45)
[2020-12-08] MEDS ORDERED: morphine INJ 10 MG/ML 1ML (SYR OR VIAL) IVP PRN (09:45)
[2020-12-08] MEDS ORDERED: HYDROcodone/APAP 5 MG/325 MG (LORTAB) TAB PO ONE (09:45)
[2020-12-08] MEDS ORDERED: ONDANSETRON 4 MG/2 ML (SDV) Z0FRAN IVP PRN ×2 (09:45→12:45)
[2020-12-08] MEDS ORDERED: HYDR-3817 PO (09:46)
--- NOTE | 2020-12-08 09:47 | Discharge Inst-Surgical ---
D/C Lap Instructions-KIDO Reconcile Patient Problems Problems Reviewed?: Yes New, Converted, or Re-Newed RX: RX on Chart Follow Up Appt in 2 weeks Activity as tolerated No driving for 24 hours No driving while on pain medications Incentive Spirometry use every 2 hours while awake Regular Diet Symptoms to Report: Fever over 101 degree F, Nausea/Vomiting Infection Signs and Symptoms to report: Increased redness, Foul odor of wound, Increased drainage Bathing instructions: May shower Operative Area Clean/Dry; Keep incision clean/dry If any problems/questions: Contact your physician or go to Emergency Room JOANN PELLETIER APRN Dec 08, 2020 09:47
[2020-12-08] MEDS ORDERED: LIDOCAINE/EPI 1%-1:100,000 (XYLOCAINE) 20ML ONE ×2 (09:48)
--- NOTE | 2020-12-08 09:53 | Progress Note-Pre Operative ---
Pre-Operative Progress Note H&P Reviewed The H&P was reviewed, patient examined and no changes noted. Date Seen by Provider: Dec 08, 2020 Time Seen by Provider: 09:50 Date H&P Reviewed: Dec 08, 2020 Time H&P Reviewed: 09:45 Pre-Operative Diagnosis: Chronic calculous cholecystitis JOANN PELLETIER APRN Dec 08, 2020 09:53
[2020-12-08] MEDS ORDERED: ceFAZolin 2 GM IV Premixed 50 ML IV ONE (10:15)
[2020-12-08] MEDS ORDERED: ONDANSETRON 4 MG/2 ML (SDV) Z0FRAN ONE (10:59)
[2020-12-08] MEDS ORDERED: LIDOCAINE PF 2% 5 ML (XYLOCAINE) VIAL ONE (10:59)
[2020-12-08] MEDS ORDERED: ROCURONIUM 10 MG/ML 5 ML SYRINGE IV ONE (10:59)
[2020-12-08] MEDS ORDERED: SEVOFLURANE (ULTANE) 15 ML INHAL SOLN ONE ×2 (10:59→12:28)
[2020-12-08] MEDS ORDERED: MIDAZOLAM 2 MG/2 ML (VERSED) VIAL ONE (10:59)
[2020-12-08] MEDS ORDERED: fentaNYL INJ 100 MCG/2 ML AMP ONE (10:59)
[2020-12-08] MEDS ORDERED: proPOfol 200 MG/20 ML (DIPRIVAN) VIAL IV ONE (10:59)
[2020-12-08] MEDS: LACTATED RINGERS 1,000 ML IV PRN ×2 (11:13→11:55)
--- NOTE | 2020-12-08 12:22 | Progress Note-Post Operative ---
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
--- NOTE | 2020-12-08 12:40 | Anesthesia-General Post-Op ---
General Patient Condition Mental Status/LOC: Same as Preop Cardiovascular: Satisfactory Nausea/Vomiting: Absent Respiratory: Satisfactory Pain: Controlled Complications: Absent Post Op Complications Complications None Follow Up Care/Instructions Patient Instructions None needed. Anesthesia/Patient Condition Patient Condition Patient is doing well, no complaints, stable vital signs, no apparent adverse anesthesia problems. No complications reported per nursing. MILDRED AGUILAR CRNA Dec 08, 2020 12:40
[2020-12-08] MEDS ORDERED: PROMETHAZINE INJ 25 MG/ML (PHENERGAN) AMP IVP ONE (12:45)
[2020-12-08] MEDS ORDERED: morphine INJ 10 MG/ML 1ML (SYR OR VIAL) IVP ONE (12:45)
[2020-12-08] MEDS ORDERED: HYDROmorphone 2 MG/ML VIAL (DILAUDID) IV ONE (12:45)
[2020-12-08] MEDS ORDERED: MEPERIDINE (DEMEROL) INJ 50 MG/ML IVP ONE (12:45)
--- NOTE | 2020-12-08 17:08 | OPERATIVE REPORT ---
DATE OF SERVICE: 12/08/2020 ATTENDING PRIMARY RIBBON WINDER: Shital Pollard APRN PREOPERATIVE DIAGNOSIS: Symptomatic chronic calculous cholecystitis. POSTOPERATIVE DIAGNOSIS: Symptomatic chronic calculous cholecystitis. PROCEDURE: Laparoscopic cholecystectomy. SURGEON: Belia Jones MD. INVESTIGATIVE ANALYST: Mitesh Molina APRN. ANESTHESIA: General endotracheal. ESTIMATED BLOOD LOSS: Minimal. FINDINGS: Distended gallbladder with solitary gallstone. DISPOSITION: The patient tolerated the procedure well. INDICATIONS: The patient is a 30-year-old female with a 5-year history of what she felt was indigestion as well as a discomfort and bloating in the upper abdominal quadrants. She also does report episodes of pain in the right upper abdominal quadrant with radiation towards the back. She had more severe episode a few weeks ago and underwent ultrasound and was found to have gallstones. DESCRIPTION OF PROCEDURE: The patient was brought to the operating room, laid supine on the table. After adequate IV pain and sedative medications and general endotracheal intubation, the abdomen was prepped and draped in standard surgical fashion. A 0.5% Marcaine with epinephrine was used to anesthetize overlying skin in the left upper abdominal quadrant and a transverse skin incision made using a 15 blade. An 0 silk suture was applied to the medial aspect of incision for retraction and a Veress needle inserted with a low opening pressure of 0 mmHg and the abdomen was then insufflated to 15 mmHg pressure. The Veress needle removed and a 5 mm XL trocar placed followed by a 5 mm 45-degree angle laparoscope visualizing the peritoneal cavity. A 4-quadrant abdominal exploration was performed. There was a distended gallbladder, no gallbladder wall thickening. Under direct visualization, we then proceeded to place a supraumbilical 10 mm port after the skin and peritoneal lining were anesthetized using 0.5% Marcaine with epinephrine and a transverse skin incision made using a 15 blade. In a similar manner, a right upper abdominal quadrant 5 mm port was placed. The patient was then placed in reverse Trendelenburg position as well as plane right side up, left side down. The fundus of the gallbladder was then retracted anteriorly and superiorly. The hepatoduodenal ligament was then opened using blunt dissection as well as electrocautery using the hook instrument as well as [place] dissector. The entire critical view of safety was identified including the triangle of Calot as well as the cystic duct and artery as the only two structures going into the gallbladder as well as the cystic plate behind the proximal gallbladder. A timeout was then taken and the cystic duct and artery were then clipped proximally and distally and cut with EndoShears. The gallbladder was then dissected off the liver bed using electrocautery with visualization of good hemostasis as well as no leaking ducts of Luschka. The gallbladder was removed through the 10 mm port site using an EndoCatch bag. The 10 mm port site fascia and peritoneum were then closed under direct visualization using a Kapil-Bee device and 0 Vicryl suture. The abdomen was desufflated and remaining ports removed. All skin incisions were closed using 4-0 Monocryl running subcuticular sutures. Wounds were then cleaned and covered with Dermabond. The patient tolerated the procedure well. We will start IV and oral pain medication as well as a clear liquid diet. When she is tolerating clears, has good pain control with oral pain medication and is ambulating well, we will discharge her home. She will be instructed to do no heavy lifting or exertion for definitively 2 weeks. However, if she does do heavy lifting for her occupation, we will recommend 4 to 6 weeks off. Job ID: [id number] DocumentID: [id number] Dictated Date: 12/08/2020 12:31:20 Front End Specialist Date: 12/08/2020 17:07:47 Dictated By: BELIA JONES MD
== END 2020-12-08 14:45 | disposition home or self-care (01) ==
LOC: SDC 09:21
PROVIDERS: ATTEND Surgery
DX: K80.10 Calculus of gallbladder with chronic cholecystitis without obstruction (principal); K58.9 Irritable bowel syndrome, unspecified; E66.01 Morbid (severe) obesity due to excess calories; F41.9 Anxiety disorder, unspecified; Z79.899 Other long term (current) drug therapy; Z68.41 Body mass index [BMI] 40.0-44.9, adult; Z87.891 Personal history of nicotine dependence; Z83.3 Family history of diabetes mellitus; Z82.49 Family history of ischemic heart disease and other diseases of the circulatory system
CPT/HCPCS: 84703; 87081

== ENCOUNTER → 2022-07-27 | Outpatient (CLI) | payer OTHER ==
[~2022-07-27] MED LIST changes: +DICY20TA PO; -DICY20TA10 PO; +HYDR-3817 PO
--- NOTE | 2022-07-27 17:48 | Diagnostic Imaging Report ---
INDICATION: Pain post injury. TECHNIQUE: AP and lateral views of the sacrum and coccyx, 1:48 PM. CORRELATION STUDY: None. FINDINGS: Sacroiliac joints appearing unremarkable. There is no acute displaced sacrococcygeal fracture. Sacral foramina appear unremarkable. Tubular shaped gas density likely reflective of a tampon. Partially visualized bilateral hips unremarkable. IMPRESSION: Unremarkable examination of the sacrum/coccyx. Dictated by: Dictated on workstation # [id number]
--- NOTE | 2022-07-27 17:56 | Diagnostic Imaging Report ---
INDICATION: Tobacco use disorder. Injury, pain EXAMINATION: Left knee 07/27/2022. FINDINGS: 3 views of the knee There is a moderate joint effusion. There are no fractures or dislocations. Joint spaces maintained. IMPRESSION: Joint effusion with no acute osseous abnormality Dictated on workstation # [id number]
== END ==
LOC: RAD FS 13:23
PROVIDERS: ATTEND Nurse Practitioner
DX: M25.562 Pain in left knee (principal); T14.90XA Injury, unspecified, initial encounter; F17.200 Nicotine dependence, unspecified, uncomplicated
CPT/HCPCS: 72220; 73562

== ENCOUNTER → 2023-01-29 | Outpatient (CLI) | payer BC, OTHER ==
--- NOTE | 2023-01-29 14:28 | Diagnostic Imaging Report ---
PROCEDURE: MRI lumbar spine. TECHNIQUE: Multiplanar, multisequence MRI of the lumbar spine was performed without contrast. INDICATION: Chronic low back pain with degenerative disc disease. COMPARISON: None available. FINDINGS: Alignment is normal. No fracture or concerning marrow replacing process. Distal thoracic cord is normal in appearance. No enlargement or clumping of the intrathecal nerve roots. Paravertebral and psoas major muscles are normal. No concerning abnormality in the retroperitoneum. There are no disc bulges or herniations within the lumbar spine. Mild facet osteoarthritis is present bilaterally at L5-S1. No spinal canal or neural foraminal stenosis within the lumbar spine. IMPRESSION: 1. Mild facet osteoarthritis at L5-S1. 2. No disc bulges or herniations. No sites of potential nerve root impingement. Dictated by: Dictated on workstation # [id number]
== END ==
LOC: RAD 12:37
PROVIDERS: ATTEND Nurse Practitioner Family
DX: M47.817 Spondylosis without myelopathy or radiculopathy, lumbosacral region (principal)
CPT/HCPCS: 72148